=== PATIENT | male | born 1965 | race Caucasian/White ===

== ENCOUNTER 2017-04-21 07:21 | Emergency (ER) | payer OTHER ==
[2017-04-21 07:31] VITALS: PULSE 65; RESP 18; TEMP 98.1
--- NOTE | 2017-04-21 08:00 | EDPHY ---
H & P Time Seen by Provider: 04/21/17 07:47 HPI/ROS: CHIEF COMPLAINT: Right index finger laceration HISTORY OF PRESENT ILLNESS: Breaking down a box with scissors just prior to arrival cut his right index finger. No foreign body sensation and no weakness or numbness distally. REVIEW OF SYSTEMS: No other injuries PAST MEDICAL HISTORY: Tetanus up-to-date, otherwise negative General Appearance: Alert and conversant, cooperative. Right index on the volar radial side has 1 cm total proximally based flap-type avulsion laceration just proximal to the tip. FDP and FDS and extensor tendon function all normal. Capillary refill and two-point discrimination normal. Bleeding controlled with pressure. Emergency Department course/MDM: Procedure: Laceration repair. Verbal consent was obtained from the patient. The 1 cm laceration on the right index was anesthetized using 0.5% bupivacaine with out epinephrine. The wound was irrigated with standard emergency department protocol, draped and explored. There were no deep structures involved. No tendon injury was identified. No foreign body found. The wound was repaired with 5 O Ethilon. The wound repair was simple. Excellent hemostasis was obtained. Wound care instructions were discussed and the patient was warned regarding scarring. The procedure was performed by myself. Smoking Status: Never smoked Constitutional: Initial Vital Signs Temperature (C) 36.7 C 04/21/17 07:29 Heart Rate 65 04/21/17 07:29 Respiratory Rate 18 04/21/17 07:29 Blood Pressure 113/61 04/21/17 07:29 O2 Sat (%) 97 04/21/17 07:29 O2 Delivery Mode Room Air Allergies/Adverse Reactions: No Known Allergies Allergy (Unverified 04/21/17 07:28) Home Medications: Medication Instructions Recorded NK [No Known Home Meds] 04/21/17 MDM/Departure - Depart Disposition: Home, Routine, Self-Care Clinical Impression: Laceration of right index finger Qualifiers: Encounter type: initial encounter Damage to nail status: without damage Foreign body presence: without foreign body Qualified Code(s): S61.210A - Laceration without foreign body of right index finger without damage to nail, initial encounter Condition: Good Instructions: Acute Wounds (ED) Additional Instructions: Wound Care Follow-Up: Removal of sutures in 10 days. Suture removal is complimentary in uncomplicated cases. Infection or abnormal findings would require reevaluation by the MD. In that case, you may be billed. Referrals: MIGUEL ÁNGEL ZHANG [Other] - As per Instructions
[2017-04-21 08:48] VITALS: BP 124/72; O2SAT 96
== END 2017-04-21 08:47 | disposition home or self-care (01) ==
LOC: MERGE 07:21
PROC: 0HQFXZZ Repair Right Hand Skin, External Approach (ICD-10-PCS; principal; 2017-04-21)
DX: S61.210A Laceration without foreign body of right index finger without damage to nail, initial encounter (principal); W27.2XXA Contact with scissors, initial encounter